=== PATIENT | female | born 1980 | race Two or more races ===

== ENCOUNTER 2017-12-09 10:30 | Outpatient (CLI) | END 2017-12-09 12:00 | disposition home or self-care (01) ==

== ENCOUNTER 2018-03-07 10:35 | Outpatient (CLI) | payer BC ==
[~2018-03-07] VITALS: Ht 175.3 cm; Wt 75.5 kg
[~2018-03-07 10:35] MED LIST: PNV11TAB PO
[2018-03-07 10:50] VITALS: BP 130/76; Ht 175.3 cm; Wt 75.5 kg
--- NOTE | 2018-03-07 15:12 | PN ---
Triage Information Date/Time 03/07/1806/20/1506 Reason for visit: Abd/pelvic pain Weeks of Gestation 34w1d /Para primigravida Diabetes: none Hypertention: none Objective Vital Signs Date Temp Pulse Resp B/P (MAP) Pulse Ox O2 O2 Flow FiO2 Time Delivery Rate 03/07/18 97.6 130/76 10:50 (94) Heart Rate: 130's Heart Rate Comments CAT I tracing Contractions: >10 Minutes Apart Exam movement cause discomfort Results/Medications Result Diagram: 03/07/18 1150 Results 24 hrs Laboratory Tests Test 03/07/18 10:30 03/07/18 11:50 Urine Color YELLOW Urine Clarity CLEAR Urine pH 5.0 Urine Specific [place] 1.012 Urine Ketones NEGATIVE Urine Nitrite NEGATIVE Urine Bilirubin NEGATIVE Urine Urobilinogen NEGATIVE Urine Leukocyte Esterase NEGATIVE Urine Hemoglobin NEGATIVE Urine Glucose NEGATIVE Urine Total Protein NEGATIVE White Blood Count 10.4 Red Blood Count 3.84 L Hemoglobin 11.7 L Hematocrit 34.9 L Mean Corpuscular Volume 90.9 Mean Corpuscular Hemoglobin 30.5 Mean Corpuscular Hemoglobin Concent 33.5 Red Cell Distribution Width 12.1 Platelet Count 241 Mean Platelet Volume 10.1 Immature Granulocytes % 1.400 H Neutrophils % 72.0 Lymphocytes % 18.3 Monocytes % 7.3 Eosinophils % 0.7 Basophils % 0.3 Nucleated Red Blood Cells % 0.0 Immature Granulocytes # 0.140 H Neutrophils # 7.5 Lymphocytes # 1.9 Monocytes # 0.8 Eosinophils # 0.1 Basophils # 0.0 Nucleated Red Blood Cells # 0.0 Medications patient refused IV hydration only oral hydration made her alleviated Imaging Results BPP 8/8 MELINDA 12.1 CVL 2.99 Disposition: Discharge Assessment/Plan A IUP 34w1d pelvic pain resolved by oral hydration P discharge home with routine labor instructions bed rest one wk f/u with her OB sooner than her appoinment BRITTA SHANKS MD Mar 07, 2018 15:12
--- NOTE | 2018-03-07 15:15 | TRIAGE ---
OB Triage Datetime Report Generated by CPN: 03/07/2018 15:15 Datetime: 03/07/2018 14:08 Monitor Mode: External Pattern: Normal: <= 5 Contractions in 10 Minutes Resting Tone [place]: Relaxed Heart Rate FHR Baseline Rate: 125 Monitor Mode: External US Variability: Moderate 6-25 bpm Accelerations: 15X15 Decelerations: None Category: Category I Datetime: 03/07/2018 13:42 Stage of : OB Triage Labor Evaluation Frequency: 2-5 Monitor Mode: External Duration (sec)2399: 30 Pattern: Normal: <= 5 Contractions in 10 Minutes Heart Rate FHR Baseline Rate: 125 Monitor Mode: External US Variability: Moderate 6-25 bpm Accelerations: 15X15 Decelerations: None Category: Category I Pain Assessment Pain Scale: 5 Pain Presence: Intermittent Pain Type: Cramping Pain Location: Abdomen Pain Relief Measures: Comfort Measures Datetime: 03/07/2018 11:59 Comments: US AT BEDSIDE Datetime: 03/07/2018 11:43 Labor Evaluation Frequency: X1 Duration (sec)2399: 30 Pattern: Normal: <= 5 Contractions in 10 Minutes Resting Tone [place]: Relaxed Heart Rate FHR Baseline Rate: 135 Monitor Mode: External US Variability: Moderate 6-25 bpm Accelerations: 15X15 Decelerations: None Category: Category I Datetime: 03/07/2018 10:57 Stage of : OB Triage Assessment Type: Triage Time of Arrival: 03/07/2018 10:26 EGA: 34.1 Arrived By: Ambulatory Arrived From: Home Chief Complaint: CRAMPING. UC'S Movement: Present Contractions: Irregular Rupture of Membranes: Denies Vaginal Bleeding: Normal Show Vaginal Discharge: Denies Recent Sexual Intercouse: Denies Abdominal Trauma: Not Applicable Patient Complaints: Cramping Initial Plan: EFMX2, Maternal Assessment Level of Consciousness: Fully Conscious DTR's/Clonus: DTRs 2+; No Clonus Headache: Denies Blurred Vision: No Respiratory Effort: Unlabored; Regular Rhythm; Equal Expansion Breath Sounds, Left: Clear and Equal Breath Sounds, Right: Clear and Equal Nausea/Vomiting: Denies RUQ Epigastric Pain: Denies Lower Extremities Edema: None Degree: None Upper Extremities Edema: None Degree: None Facial Edema: None Temperature Route: Oral Fall Risk Assessment History of Falling: (0) No Secondary Diagnosis: (0) No Ambulatory Aid: (0) Bedrest/Nurse Assist IV Therapy: (0) No Gait: (0) Normal/Bedrest/Immobile Mental Status: (0) Oriented to Own Ability Fall Score: 0 Fall Risk Score Definition: No Risk: No action required Monitor Mode: External Monitor Mode: External US Pain Assessment Pain Scale: 5 Pain Presence: Intermittent Pain Type: Cramping Pain Location: Abdomen Datetime: 12/09/2017 11:54 Stage of : OB Triage Datetime: 12/09/2017 11:05 Stage of : OB Triage Assessment Type: Triage Maternal Assessment Level of Consciousness: Fully Conscious DTR's/Clonus: DTRs 2+; No Clonus Headache: Denies Blurred Vision: No Respiratory Effort: Unlabored; Regular Rhythm; Equal Expansion Breath Sounds, Left: Clear and Equal Breath Sounds, Right: Clear and Equal Nausea/Vomiting: Denies RUQ Epigastric Pain: Denies Facial Edema: None Temperature Route: Axillary Fall Risk Assessment History of Falling: (0) No Secondary Diagnosis: (0) No Ambulatory Aid: (0) Bedrest/Nurse Assist IV Therapy: (0) No Gait: (0) Normal/Bedrest/Immobile Mental Status: (0) Oriented to Own Ability Fall Score: 0 Fall Risk Score Definition: No Risk: No action required Labor Evaluation Frequency: 0 Monitor Mode: External Heart Rate FHR Baseline Rate: 147 (Annotations: 147X 2 MINUTES) Monitor Mode: External US Pain Assessment Pain Scale: 0 Pain Presence: None/Denies Pain Type: N/A Pain Goal: 3 Pain Relief Measures: Comfort Measures Datetime: 12/09/2017 11:03 Time of Arrival: 12/09/2017 10:26 EGA: 21.4 Arrived By: Ambulatory Arrived From: Home Chief Complaint: C/O DFM X3 DAYS, DENIES LEAKING, BLEEDING OR UC'S Movement: Absent Contractions: Denies/Absent Rupture of Membranes: Denies Vaginal Bleeding: None Vaginal Discharge: Denies Recent Sexual Intercouse: Denies Abdominal Trauma: Not Applicable Patient Complaints: None Time Provider Notified: 12/09/2017 10:39 Provider Notified: TIM Initial Plan: FHT, MELINDA Datetime: 12/09/2017 10:39 Stage of : OB Triage
== END 2018-03-07 15:12 | disposition home or self-care (01) ==
LOC: OBT 10:35 → L-D 10:36 → OBT 15:12
PROVIDERS: ATTEND Specialist
DX: O26.893 Other specified pregnancy related conditions, third trimester (principal); O09.523 Supervision of elderly multigravida, third trimester; Z3A.34 34 weeks gestation of pregnancy
CPT/HCPCS: 76817; 76818; 81003; 85025; 87086; Z7500; G0463

== ENCOUNTER 2018-04-21 11:08 | Outpatient (CLI) | payer BC ==
[~2018-04-21] VITALS: Ht 175.3 cm; Wt 78.9 kg
[2018-04-21 11:17] VITALS: Ht 175.3 cm; Wt 78.9 kg
[2018-04-21 11:34] VITALS: BP 117/72; PULSE 93; RESP 18
--- NOTE | 2018-04-21 15:24 | PN ---
Triage Information Date/Time 04/21/2018 Reason for visit: 38 YO G1 with IUP at 40.2 weeks. she has irregular UCs and had small amount of vaginal bleeding when she wiped earlier, but not at this time. she denies LOF per vagina. she reports good FM. she would like to wait 2 more days prior to IOL. Weeks of Gestation 40.2 /Para G1 Diabetes: none Hypertention: none Objective Vital Signs Date Temp Pulse Resp B/P (MAP) Pulse Ox O2 O2 Flow FiO2 Time Delivery Rate 04/21/18 98.0 93 18 117/72 96 Room Air 11:34 (87) Exam NST is category one Abdomen: soft, gravid Cervix is long and closed Disposition: Discharge Assessment/Plan not in labor IUP at 40.2 weeks DASIA SWEET MD Apr 21, 2018 15:24
== END 2018-04-21 15:31 | disposition home or self-care (01) ==
LOC: OBT 11:08 → L-D 11:08 → OBT 15:31
PROVIDERS: ATTEND Specialist
DX: O62.9 Abnormality of forces of labor, unspecified (principal); O09.523 Supervision of elderly multigravida, third trimester; Z3A.40 40 weeks gestation of pregnancy
CPT/HCPCS: 76815; 76818; Z7500; G0463

== ENCOUNTER 2018-04-23 08:00 | Inpatient (IN) | payer BC ==
[~2018-04-23] VITALS: Ht 175.3 cm; Wt 78.9 kg
[2018-04-23 21:45] VITALS: BP 135/77; PULSE 76; RESP 20; Ht 175.3 cm; Wt 78.9 kg
[2018-04-23] MEDS ORDERED: OMEP20CA16 PO (21:46)
[2018-04-23] MEDS ORDERED: LACTATED RINGER'S 1,000 ML IV PRN (22:07)
[2018-04-23] MEDS ORDERED: MISOPROSTOL 200 MCG TAB PR PRN (22:30)
[2018-04-23] MEDS ORDERED: CARBOPROST 250 MCG INJ IM PRN (22:30)
[2018-04-23] MEDS ORDERED: OXYTOCIN 30 UNITS/LR 500 ML IV PRN (22:30)
[2018-04-23] MEDS ORDERED: OXYTOCIN 30 UNITS/LR 500 ML IV SCH ×2 (22:30)
[2018-04-23] MEDS ORDERED: METHYLERGONOVINE 0.2 MG INJ IM PRN (22:30)
[2018-04-23] MEDS ORDERED: LIDOCAINE 1% (MPF) 30 ML INJ INJ PRN (22:30)
[2018-04-23] MEDS: LACTATED RINGER'S 1,000 ML IV SCH (22:33)
[2018-04-23] MEDS: MISOPROSTOL 50 MCG CAPSULE PO SCH (23:51)
[2018-04-24] MEDS: LACTATED RINGER'S 1,000 ML IV SCH ×4 (02:38→21:43)
[2018-04-24] MEDS: MISOPROSTOL 50 MCG CAPSULE PO SCH (04:10)
--- NOTE | 2018-04-24 04:24 | PREAC ---
Date/Time of Note Date/Time of Note DATE: 04/24/18 TIME: 04:23 Anesthesia Eval and Record Evaluation Time Pre-Procedure Interview DATE: 04/24/18 TIME: 04:23 Age 38 Sex female NPO: 8 hrs Preoperative diagnosis iup at 40 weeks Planned procedure labor epidural Past Medical History Past Medical History: None Surgery & Anesthesia Issues No known issue Meds Anticoagulation: No Beta Eliud within 24 hr: No Reason Beta Eliud not given: Pt. not on B-Eliud Reported Medications Omeprazole* (Omeprazole*) 20 Mg Capsule.dr, 20 MG PO DAILY, #30 CAP 04/23/18 [id number] ( 19) 1 Each Tablet, 1 TAB PO DAILY, TAB 12/09/17 Current Medications Lactated Ringer's 1,000 ml @ 125 mls/hr Q8H IV Last administered on 04/24/18at 02:38; Admin Dose 125 MLS/HR; Start 04/23/18 at 22:07 Lidocaine (Xylocaine 1% (Mpf)) 30 ml ONCE PRN INJ .EPISIOTOMY; Start 04/23/18 at 22:30 Oxytocin/Lactated Ringer's 500 ml @ 500 mls/hr ONCE POST IV ; Start 04/23/18 at 22:30 Oxytocin/Lactated Ringer's 500 ml @ 125 mls/hr POST IV ; Start 04/23/18 at 22:30 Lactated Ringer's 1,000 ml @ 2,000 mls/hr Q30M PRN IV .ANESTHESIA; Start 04/23/18 at 22:07 Oxytocin/Lactated Ringer's 500 ml @ 0 mls/hr ONCE PRN IV .VAGINAL BLEEDING; Start 04/23/18 at 22:30 Methylergonovine Maleate (Methergine) 0.2 mg ONCE PRN IM .VAGINAL BLEEDING; Start 04/23/18 at 22:30 Carboprost Tromethamine (Hemabate) 250 mcg ONCE PRN IM .VAGINAL BLEEDING; Start 04/23/18 at 22:30 Misoprostol (Cytotec) 1,[address] .VAGINAL BLEEDING; Start 04/23/18 at 22:30 Misoprostol (Cytotec 50 Mcg Capsule) 50 mcg Q4 PO Last administered on 04/24/18at 04:10; Admin Dose 50 MCG; Start 04/23/18 at 22:30 Meds reviewed: Yes Allergies Coded Allergies: No Known Allergy (Unverified , 04/23/18) Allergies Reviewed: Yes Labs/Studies Labs Reviewed: Reviewed by anesthesiologist Result Diagram: 04/23/18 2135 Laboratory Tests 04/23/18 21:35 Blood Bank Test 04/23/18 21:35 Antibody Screen NEGATIVE Blood Type B POSITIVE Rh Immune Globulin Candidate NO test: Positive Pre-procedure Exam Last vitals Vital Signs Date Temp Pulse Resp B/P (MAP) Pulse Ox O2 O2 Flow FiO2 Time Delivery Rate 04/23/18 98.9 76 20 135/77 Room Air 21:45 (96) Airway: Adequate mouth opening, Adequate thyromental dist Mallampati: Mallampati II Teeth: Normal Lung: Normal Heart: Normal ASA Physical Status ASA physical status: 2 Emergency: None Planned Anesthetic Neuraxial: Epidural Planned Pain Management Parenteral pain med Pre-operative Attestations Prior to commencing anesthesia and surgery, the patient was re-evaluated, there was verification of: *The patient's identity *The results of appropriate recent lab work and preoperative vital signs *The above evaluation not changing prior to induction *Anesthetic plan, risk benefits, alternative and complications discussed with patient/family; questions answered; patient/family understands, accepts and wishes to proceed. RODRIGO SANABRIA Apr 24, 2018 04:24
[2018-04-24] MEDS ORDERED: FENTAnyl 2MCG/ML-ROPIV 0.2% 100 ML ONE (04:25)
[2018-04-24] MEDS ORDERED: NALOXONE (0.4 MG/ML) INJ IV PRN (04:30)
[2018-04-24] MEDS ORDERED: DIPHENHYDRAMINE 50 MG INJ IV PRN (04:30)
[2018-04-24] MEDS ORDERED: ONDANSETRON 4 MG INJ IV PRN (04:30)
[2018-04-24] MEDS ORDERED: OXYTOCIN 30 UNITS/LR 500 ML IV SCH (09:00)
[2018-04-24] MEDS: FENTAnyl 2MCG/ML-ROPIV 0.2% 100 ML BAG EPI SCH ×2 (14:08→22:16)
[2018-04-25] MEDS ORDERED: hydrOXYzine PAMOATE 25 MG CAP PO ONE (02:30)
[2018-04-25] MEDS: LACTATED RINGER'S 1,000 ML IV SCH ×2 (02:43→08:56)
[2018-04-25] MEDS: FENTAnyl 2MCG/ML-ROPIV 0.2% 100 ML BAG EPI SCH ×2 (06:22→12:57)
--- NOTE | 2018-04-25 07:44 | PAC ---
Date/Time of Note Date/Time of Note DATE: 04/25/18 TIME: 07:43 Post-Anesthesia Notes Post-Anesthesia Note Last documented vital signs Vital Signs Date Temp Pulse Resp B/P (MAP) Pulse Ox O2 O2 Flow FiO2 Time Delivery Rate 04/24/18 98.9 76 20 135/77 Room Air 21:45 (96) Activity: WNL Respiratory function: WNL Cardiovascular function: WNL Mental status: Baseline Pain reasonably controlled: Yes Hydration appropriate: Yes Nausea/Vomiting absent: Yes RODRIGO SANABRIA Apr 25, 2018 07:44
--- NOTE | 2018-04-25 13:48 | HP ---
Date/Time of Note Date/Time of Note DATE: 04/25/18 TIME: 13:44 OB - History Hx of Present Free Text/Dictation 38 YO G1 with IUP at 40.6 weeks who was admitted for IOL for postdate . she received Cytotec, Pitocin and progressed to complete dilation. AROM done and she has thick meconium. she is pushing. EFW is 9 Lb and her pelvic is adequate. NST overall is reassuring, but she had prolonged decelerations last pm. Laborist was covering me Care: Good Care Ultrasounds: Normal mid trimester US Obstetrical Complications: None Medical Complications: None Past Family/Social History * Past Medical, Surgical, Family and Obstetric Histories reviewed from chart. OB Admission Exam Vital Signs Vital Signs Vital Signs Date Temp Pulse Resp B/P (MAP) Pulse Ox O2 O2 Flow FiO2 Time Delivery Rate 04/23/18 98.9 76 20 135/77 Room Air 21:45 (96) Physical Exam HEENT: WNL Heart: Rhythm Normal Lungs: Clear, Equal Abdomen: WNL Extremities: Normal Reflexes: Normal Cervical Dilatation: 10cm Last 72 hours Lab Results CBC & BMP 04/23/18 21:35 OB Assessment/Plan Reason for admission: active labor Plan: Expectant Management Induction Method: per Pitocin Protocol DASIA SWEET MD Apr 25, 2018 13:48
[2018-04-25] MEDS ORDERED: LACTATED RINGER'S 1,000 ML IV* SCH (15:11)
--- NOTE | 2018-04-25 15:16 | LDN ---
Date/Time of Note Date/Time of Note DATE: 04/25/18 TIME: 15:14 Delivery Summary 38 YO G1 with IUP at 40.6 weeks who was admitted for IOL for postdate . s/p of viable female infant with thick mec with large 2nd degree vaginal and perineal laceration and left labial laceration. repaired with 2-[address] 1 and 3-0 chromic on SH. placenta delivered intact and spontaneously Placenta Delivered: Spontaneously Meconium: Thick Episiotomy: No Anesthesia type: Epidural Estimated blood loss: 300 Sponge & Needle done & correct: Yes All needle counts correct: Yes Any foreign bodies felt in the: No Infant Delivery Information Sex Sex: female Apgars 1 Minute: 8 5 Minute: 9 Suctioning Nose & mouth suctioned at so: No Delee suction performed: No Umbilical Cord Umbilical cord with: 3 Vessels Cord presentations: no nuchal cord Cord Blood was obtained: Yes Mother & Baby Disposition Disposition Mom & Baby to Maternity; Good: Yes DASIA SWEET MD Apr 25, 2018 15:16
[2018-04-25] MEDS ORDERED: CARBOPROST 250 MCG INJ IM PRN (15:30)
[2018-04-25] MEDS ORDERED: NA PHOSPHATE/BIPHOS 133 ML ENEMA PR PRN (15:30)
[2018-04-25] MEDS ORDERED: ONDANSETRON 4 MG INJ IV PRN (15:30)
[2018-04-25] MEDS ORDERED: LANOLIN HPA 1 PKT TOP PRN (15:30)
[2018-04-25] MEDS ORDERED: ONDANSETRON 4 MG TAB PO PRN (15:30)
[2018-04-25] MEDS ORDERED: OXYTOCIN 30 UNITS/LR 500 ML IV PRN (15:30)
[2018-04-25] MEDS ORDERED: DIPHENHYDRAMINE 50 MG INJ IV PRN (15:30)
[2018-04-25] MEDS ORDERED: SENNA/DOCUSATE NA (8.6MG/50MG) TAB PO PRN (15:30)
[2018-04-25] MEDS ORDERED: DIBUCAINE 1% 30 GM OINT TOP PRN (15:30)
[2018-04-25] MEDS ORDERED: HYDROCODONE/APAP (5/325) TAB PO PRN (15:30)
[2018-04-25] MEDS ORDERED: MISOPROSTOL 200 MCG TAB PR PRN (15:30)
[2018-04-25] MEDS ORDERED: MAGNESIUM HYDROXIDE 30ML CUP PO PRN (15:30)
[2018-04-25] MEDS ORDERED: DIPHENHYDRAMINE 25 MG CAP PO PRN (15:30)
[2018-04-25] MEDS ORDERED: IBUPROFEN 800 MG TAB PO ONE (17:00)
[2018-04-25] MEDS: HYDROCODONE/APAP (5/325) TAB PO PRN (17:49)
[2018-04-25] MEDS: IBUPROFEN 600 MG TAB PO SCH ×2 (18:00→23:24)
[2018-04-25 18:30] VITALS: BP 136/79; PULSE 89; RESP 18
[2018-04-25] MEDS: WITCH HAZEL/GLYCERIN PAD PR PRN (20:16)
[2018-04-25] MEDS: BENZOCAINE 20% 56 ML SPRAY TOP PRN (20:16)
[2018-04-25 20:30] VITALS: BP 137/81; PULSE 100; RESP 21
[2018-04-25] MEDS: SENNA/DOCUSATE NA (8.6MG/50MG) TAB PO SCH (21:29)
[2018-04-26 00:50] VITALS: BP 102/60; PULSE 77; RESP 18
[2018-04-26] MEDS: HYDROCODONE/APAP (5/325) TAB PO PRN ×2 (02:15→09:05)
[2018-04-26 03:05] VITALS: BP 122/67; PULSE 76; RESP 20
[2018-04-26] MEDS: IBUPROFEN 600 MG TAB PO SCH ×4 (05:25→23:31)
[2018-04-26] MEDS: SENNA/DOCUSATE NA (8.6MG/50MG) TAB PO SCH ×2 (09:01→23:31)
[2018-04-26 09:05] VITALS: BP 124/66; PULSE 85; RESP 18
--- NOTE | 2018-04-26 15:42 | QN ---
Documentation Comment no c/o no b.m vss afebrile fundus firm lochia mod calf neg fpr tenderness wbc to 16,900 A stable s/p #! P repeat CBC in am BRITTA SHANKS MD Apr 26, 2018 15:42
[2018-04-26 16:45] VITALS: BP 132/70; PULSE 88; RESP 18
[2018-04-26 20:00] VITALS: BP 120/76; PULSE 94; RESP 18
[2018-04-26] MEDS: WITCH HAZEL/GLYCERIN PAD PR PRN (23:39)
[2018-04-26] MEDS: BENZOCAINE 20% 56 ML SPRAY TOP PRN (23:39)
[2018-04-27 03:45] VITALS: BP 118/75; PULSE 93; RESP 18
[2018-04-27] MEDS: IBUPROFEN 600 MG TAB PO SCH ×2 (07:04→12:33)
[2018-04-27 08:00] VITALS: BP 117/69; PULSE 88; RESP 19
[2018-04-27] MEDS: SENNA/DOCUSATE NA (8.6MG/50MG) TAB PO SCH (09:00)
[2018-04-27] MEDS ORDERED: MEASLES,MUMPS,RUBELLA VACCINE INJ SC* ONE (09:00)
[2018-04-27] MEDS ORDERED: VARICELLA VACCINE LIVE/PF 1,350 UNIT/0.5 ML ML SC* ONE (09:00)
[2018-04-27] MEDS ORDERED: DIPHTH/TET/ACEL PERTUSS (ADULT) 0.5 ML VIAL IM* ONE (09:00)
--- NOTE | 2018-04-27 13:00 | DS ---
Date/Time of Note Date/Time of Note DATE: 04/27/18 TIME: 13:00 Obstetrical Discharge Record Final Diagnosis Final Diagnosis: Term delivered Vaginal Delivery Obstetrical Delivery: Spontaneous Complications Augmentation: Yes Induction: Yes Rupture of Membranes: No Condition on Discharge Physical Assessment Voiding: Yes Bowel Movement: Yes Breast: Soft, non-tender, Filling Fundus: Firm Abdomen and Incision: soft, not tender Calf Tenderness: No Patient Condition: Good DASIA SWEET MD Apr 27, 2018 13:00
== END 2018-04-27 16:00 | disposition home or self-care (01) | DRG 807 ==
LOC: L-D 20:08 → PP1 04-25 18:23
PROVIDERS: ADMIT Specialist; ATTEND Specialist
PROC: 10E0XZZ Delivery of Products of Conception, External Approach (ICD-10-PCS; principal; 2018-04-25)
PROC: 0KQM0ZZ Repair Perineum Muscle, Open Approach (ICD-10-PCS; 2018-04-25)
PROC: 10907ZC Drainage of Amniotic Fluid, Therapeutic from Products of Conception, Via Natural or Artificial Opening (ICD-10-PCS; 2018-04-25)
DX: O48.0 Post-term pregnancy (principal); O77.0 Labor and delivery complicated by meconium in amniotic fluid; O76 Abnormality in fetal heart rate and rhythm complicating labor and delivery; O70.1 Second degree perineal laceration during delivery; Z37.0 Single live birth; Z3A.40 40 weeks gestation of pregnancy
CPT/HCPCS: 62319; 80307; 85025; 85610; 85730; 86592; 86850; 86900; 86901; 90716; 99464; J1200; J2590; J3010; J7120